=== PATIENT | female | born 1965 | race Caucasian/White ===

== ENCOUNTER 2020-09-09 17:39 | Inpatient (IN) | payer MEDICAID ==
[~2020-09-09] VITALS: Ht 160 cm; Wt 144.5 kg
[2020-09-09] MEDS ORDERED: SODIUM CHLORIDE FLUSH 10ML SYR IVF ONE (18:00)
[2020-09-09 18:29] LABS: BASOPHILS % (AUTO) 0 % (0-1); EOSINOPHILS % (AUTO) 4 % (1-7); LYMPHOCYTES % (AUTO) 25 % (22-44); MEAN CORPUSCULAR HEMOGLOBIN 28.6 pg (27.0-34.8); MEAN CORPUSCULAR HGB CONC 32.8 g/dL (32.4-35.8); MEAN PLATELET VOLUME 7.9 fL (7.4-10.4); MONOCYTES % (AUTO) 7 % (2-9); NEUTROPHILS % (AUTO) 64 % (42-75); PLATELET COUNT 220 x10^3/uL (130-400); RED BLOOD COUNT 4.88 x10^6/uL (3.82-5.3); RED CELL DISTRIBUTION WIDTH 14.3 % (9.6-15.2)
[2020-09-09] MEDS ORDERED: BUPROPION PO (18:32)
[2020-09-09] MEDS ORDERED: METOLAZONE (18:32)
[2020-09-09] MEDS ORDERED: CARVEDILOL PO (18:32)
[2020-09-09] MEDS ORDERED: LISINOPRIL PO (18:32)
[2020-09-09] MEDS ORDERED: FURO40TA6 PO (18:32)
[2020-09-09 18:33] LABS: MD NO
[2020-09-09 18:35] LABS: ALANINE AMINOTRANSFERASE 40 U/L (12-78); ALBUMIN 3.3 g/dL (3.4-5.0); ANION GAP 2 mmol/L (5-15); CALCIUM 8.3 mg/dL (8.5-10.1); CHLORIDE 105 mmol/L (98-107); CREATININE 0.99 mg/dL (0.55-1.02)
[2020-09-09 18:39] LABS: ALKALINE PHOSPHATASE 99 U/L (45-117); BILIRUBIN,TOTAL 0.4 mg/dL (0.2-1.0); TROPONIN I < 0.015 ng/mL (0.000-0.045)
--- NOTE | 2020-09-09 19:02 | NUR ---
REPORT GIVEN TO ANA LILIA
[2020-09-09 19:10] LABS: INTERNATIONAL NORMALIZED RATIO 0.97 (0.93-1.1); PROTHROMBIN TIME 10.3 Seconds (9.6-11.5)
[2020-09-09] MEDS ORDERED: ALBUTEROL SULFATE 2.5 MG/3 ML NPPB ONE (19:30)
[2020-09-09] MEDS ORDERED: DEXAMETHASONE 4 MG/ML, 1ML IVPush ONE (19:30)
[2020-09-09] MEDS ORDERED: DEXAMETHASONE 4 MG/ML, 1ML ONE (19:55)
[2020-09-09] MEDS ORDERED: ALBUTEROL SULFATE 2.5 MG/3 ML ONE (19:56)
[2020-09-09] MEDS ORDERED: BISACODYL 10 MG SUPP PR PRN (20:00)
[2020-09-09] MEDS ORDERED: POLYETHYLENE GLYCOL 17 GM PACKET PO PRN (20:00)
[2020-09-09] MEDS ORDERED: ONDANSETRON ODT 4 MG PO PRN (20:00)
[2020-09-09] MEDS: SODIUM CHLORIDE FLUSH 10ML SYR IVF SCH (20:16)
[2020-09-09] MEDS ORDERED: HEPARIN 5,000 UNITS/ML, 1ML ONE (20:29)
[2020-09-09] MEDS: HEPARIN 5,000 UNITS/ML, 1ML SQ SCH (21:02)
--- NOTE | 2020-09-09 22:23 | NUR ---
REPORT GIVEN TO FINA STEARNS.
[2020-09-09 23:05] VITALS: BP 136/75
[2020-09-10] MEDS: ACETAMINOPHEN 325 MG TABLET PO PRN ×2 (02:19→17:59)
[2020-09-10 02:27] VITALS: BP 140/89
[2020-09-10] MEDS: HEPARIN 5,000 UNITS/ML, 1ML SQ SCH (05:57)
[2020-09-10 06:58] VITALS: BP_DIAS 65
[2020-09-10 07:42] LABS: BASOPHILS % (AUTO) 0 % (0-1); EOSINOPHILS % (AUTO) 0 % (1-7); LYMPHOCYTES % (AUTO) 9 % (22-44); MEAN CORPUSCULAR HEMOGLOBIN 29.2 pg (27.0-34.8); MEAN PLATELET VOLUME 7.9 fL (7.4-10.4); MONOCYTES % (AUTO) 1 % (2-9); NEUTROPHILS % (AUTO) 90 % (42-75); PLATELET COUNT 226 x10^3/uL (130-400); RED BLOOD COUNT 4.98 x10^6/uL (3.82-5.3); RED CELL DISTRIBUTION WIDTH 14.1 % (9.6-15.2)
[2020-09-10 07:44] LABS: ANION GAP 3 mmol/L (5-15); CALCIUM 8.8 mg/dL (8.5-10.1); CHLORIDE 107 mmol/L (98-107); CREATININE 0.88 mg/dL (0.55-1.02)
[2020-09-10 07:49] LABS: TROPONIN I < 0.015 ng/mL (0.000-0.045)
[2020-09-10 08:50] LABS: MD SCAN
[2020-09-10] MEDS ORDERED: FUROSEMIDE 40 MG TABLET PO SCH (09:00)
[2020-09-10] MEDS: FUROSEMIDE 40 MG/4 ML IV SCH ×2 (09:33→17:53)
[2020-09-10] MEDS: SODIUM CHLORIDE FLUSH 10ML SYR IVF SCH ×2 (09:34→20:16)
[2020-09-10] MEDS: DOXYCYCLINE 100MG TABLET PO SCH ×2 (09:34→20:16)
[2020-09-10] MEDS: methylPREDNISolone SOD SUCC 125 MG/2 ML IVPush SCH ×3 (09:34→20:16)
[2020-09-10] MEDS: SENNA/DOCUSATE TABLET PO SCH (09:41)
[2020-09-10 12:10] VITALS: BP 130/52
[2020-09-10] MEDS: ENOXAPARIN 40 MG/0.4 ML SQ SCH (15:01)
[2020-09-10 20:00] VITALS: BP 147/89
[2020-09-10] MEDS ORDERED: BUPROPION SR 150 MG TABLET PO ONE (20:00)
[2020-09-10] MEDS: NICOTINE 14MG/24 HR PATCH.TD24 TD SCH (20:15)
[2020-09-10] MEDS: BUTALB/APAP/CAFFEINE 50MG/325MG/40MG PO PRN (23:39)
[2020-09-11 00:31] VITALS: BP 142/78
[2020-09-11] MEDS: methylPREDNISolone SOD SUCC 125 MG/2 ML IVPush SCH ×2 (03:32→07:56)
[2020-09-11] MEDS: BUTALB/APAP/CAFFEINE 50MG/325MG/40MG PO PRN (06:04)
[2020-09-11 06:28] LABS: CHLORIDE 104 mmol/L (98-107)
[2020-09-11 06:37] LABS: ANION GAP 3 mmol/L (5-15); CALCIUM 9.1 mg/dL (8.5-10.1); CREATININE 0.92 mg/dL (0.55-1.02)
[2020-09-11 06:47] VITALS: BP 165/65
[2020-09-11] MEDS: SENNA/DOCUSATE TABLET PO SCH (07:54)
[2020-09-11] MEDS: FUROSEMIDE 40 MG/4 ML IV SCH (07:54)
[2020-09-11] MEDS: BUPROPION SR 150 MG TABLET PO SCH (07:55)
[2020-09-11] MEDS: SODIUM CHLORIDE FLUSH 10ML SYR IVF SCH ×2 (07:55→20:51)
[2020-09-11] MEDS: DOXYCYCLINE 100MG TABLET PO SCH ×2 (07:55→20:50)
[2020-09-11] MEDS ORDERED: CARV12.52 PO (08:59)
[2020-09-11] MEDS ORDERED: LISI-167 PO (08:59)
[2020-09-11] MEDS ORDERED: BUPR150T13 PO (08:59)
[2020-09-11] MEDS ORDERED: BUPR150T28 PO (08:59)
[2020-09-11] MEDS ORDERED: FURO40TA6 PO ×2 (08:59→10:04)
[2020-09-11] MEDS ORDERED: PRED10TA PO (10:04)
[2020-09-11] MEDS ORDERED: DOXY100T PO (10:04)
[2020-09-11] MEDS: CARVEDILOL 12.5 MG TABLET PO SCH ×2 (10:40→17:33)
[2020-09-11] MEDS: LISINOPRIL 10 MG TABLET PO SCH (10:40)
[2020-09-11 14:40] VITALS: BP 146/84
[2020-09-11] MEDS: ENOXAPARIN 40 MG/0.4 ML SQ SCH (14:43)
[2020-09-11 19:24] VITALS: BP 128/79
[2020-09-11] MEDS: NICOTINE 14MG/24 HR PATCH.TD24 TD SCH (20:50)
[2020-09-11] MEDS: ACETAMINOPHEN 325 MG TABLET PO PRN (20:57)
[2020-09-12 01:46] VITALS: BP 135/76
[2020-09-12] MEDS: ACETAMINOPHEN 325 MG TABLET PO PRN (04:42)
[2020-09-12 06:04] VITALS: BP 138/81
[2020-09-12] MEDS: CARVEDILOL 12.5 MG TABLET PO SCH (06:07)
[2020-09-12] MEDS: BUPROPION SR 150 MG TABLET PO SCH (08:39)
[2020-09-12] MEDS: SODIUM CHLORIDE FLUSH 10ML SYR IVF SCH (08:40)
[2020-09-12] MEDS: LISINOPRIL 10 MG TABLET PO SCH (08:40)
[2020-09-12] MEDS: SENNA/DOCUSATE TABLET PO SCH (08:40)
[2020-09-12] MEDS: DOXYCYCLINE 100MG TABLET PO SCH (08:40)
[2020-09-12 08:54] VITALS: BP 154/79
[2020-09-12] MEDS ORDERED: FUROSEMIDE 40 MG TABLET PO SCH (09:00)
== END 2020-09-12 12:59 | disposition home or self-care (01) | DRG 133 ==
LOC: ED 22:34 → EDIP 23:22 → 4WST 23:40
PROVIDERS: ADMIT Internal Medicine; ATTEND Internal Medicine
PROC: 5A09357 Assistance with Respiratory Ventilation, Less than 24 Consecutive Hours, Continuous Positive Airway Pressure (ICD-10-PCS; principal; 2020-09-09)
DX: J96.01 Acute respiratory failure with hypoxia (principal); J44.1 Chronic obstructive pulmonary disease with (acute) exacerbation; I11.0 Hypertensive heart disease with heart failure; E66.01 Morbid (severe) obesity due to excess calories; B34.9 Viral infection, unspecified; F32.9 Major depressive disorder, single episode, unspecified; G47.33 Obstructive sleep apnea (adult) (pediatric); I50.33 Acute on chronic diastolic (congestive) heart failure; Z20.828 Contact with and (suspected) exposure to other viral communicable diseases; Z91.19 Patient's noncompliance with other medical treatment and regimen; Z99.81 Dependence on supplemental oxygen; Z90.49 Acquired absence of other specified parts of digestive tract; Z88.8 Allergy status to other drugs, medicaments and biological substances; Z88.0 Allergy status to penicillin
CPT/HCPCS: 36415; 71045; 71046; 80048; 80053; 83605; 83880; 84484; 85025; 85379; 85610; 93005; 93306; 93970; 96374; 99285; G0378; J1100; J1644; J1650; J1940; J7613; J2930; J7512; U0003